=== PATIENT | male | born 1980 | race Caucasian/White ===

== ENCOUNTER 2018-04-09 03:00 | Emergency (ER) | payer SELFPAY ==
[~2018-04-09] VITALS: Ht 177.8 cm; Wt 151.1 kg
[2018-04-09] MEDS ORDERED: AUGMENTIN875 MG PO (06:55)
[2018-04-09 08:20] VITALS: BP 153/96
== END 2018-04-09 08:20 | disposition home or self-care (01) ==
LOC: EME 03:00
PROC: 3E0234Z Introduction of Serum, Toxoid and Vaccine into Muscle, Percutaneous Approach (ICD-10-PCS; principal; 2018-04-09)
PROC: 0CQ1XZZ Repair Lower Lip, External Approach (ICD-10-PCS; principal; 2018-04-09)
DX: S01.551A Open bite of lip, initial encounter (principal); W54.0XXA Bitten by dog, initial encounter; Z23 Encounter for immunization; Y92.410 Unspecified street and highway as the place of occurrence of the external cause
CPT/HCPCS: 99281; 99284

== ENCOUNTER 2018-05-14 18:10 | Emergency (ER) | payer SELFPAY ==
[~2018-05-14] VITALS: Ht 177.8 cm; Wt 148.1 kg
[~2018-05-14 18:10] MED LIST: AUGMENTIN875 MG PO
[2018-05-14 18:32] VITALS: BP 134/78
== END 2018-05-14 19:11 | disposition home or self-care (01) ==
LOC: EME 18:10
DX: S01.511D Laceration without foreign body of lip, subsequent encounter (principal)
CPT/HCPCS: 99281; 99283